=== PATIENT | female | born 1960 | race Caucasian/White ===

== ENCOUNTER → 2023-11-29 12:17 | Outpatient (REF) | payer BC, SELFPAY | LOC: RAD 12:17 | PROVIDERS: ATTENDING PHYSICIAN Student in an Organized Health Care Education/Training Program | DX: J40 Bronchitis, not specified as acute or chronic (principal) | CPT/HCPCS: 71046 ==

== ENCOUNTER → 2024-04-11 15:06 | Outpatient (REF) | payer BC, SELFPAY | LOC: WDC 15:06 | PROVIDERS: ATTENDING PHYSICIAN Student in an Organized Health Care Education/Training Program | DX: Z12.31 Encounter for screening mammogram for malignant neoplasm of breast (principal) | CPT/HCPCS: 77063; 77067 ==

== ENCOUNTER 2025-01-30 09:19 | Emergency (ER) | payer BC, SELFPAY ==
[2025-01-30] VITALS (7 sets, daily range): BP systolic 112–168; BP diastolic 54–80; BMI 32.3
[2025-01-30 10:00] LABS: Hematocrit 37.2 % (37.0-47.0); Hemoglobin 12.6 g/dL (12.0-16.0); Mean Corp Hgb Conc. 33.9 g/dL (33.0-37.0); Mean Corpuscular Hgb 32.3 pg (27.0-31.0); Mean Corpuscular Volume 95.4 fL (81.0-99.0); Mean Platelet Volume 10.3 fL (7.4-10.4); Platelet Count 274 10^3/uL (130-400); Red Cell Dist. Width 14.6 % (11.5-14.5); White Blood Cell Count 6.4 10^3/uL (4.8-10.8)
[2025-01-30] MEDS: ZOFRAN 4 MG IV (10:05)
[2025-01-30 10:20] LABS: Albumin 4.8 g/dl (3.5-5.0); Blood Urea Nitrogen 16 mg/dl (7-17); Carbon Dioxide 28 mmol/L (22-30); Total Bilirubin 0.5 mg/dl (0.2-1.3); Total Protein 7.8 g/dl (6.3-8.2); eGFR > 60.00
[2025-01-30 10:21] LABS: Troponin I < 0.012 ng/ml
[2025-01-30] MEDS: REGLAN 10 MG IV (10:30)
[2025-01-30 10:32] LABS: ALT (SGPT) 24 U/L (0-35); AST (SGOT) 28 U/L (14-36); Alcohol None Detected; Alkaline Phosphatase 86 U/L (38-126); Calcium 10.1 mg/dl (8.4-10.2); Chloride 109 mmol/L (98-107); Glucose 97 mg/dl (70-99); Potassium 5.2 mmol/L (3.5-5.1); Sodium 143 mmol/L (135-145)
[2025-01-30] MEDS: VALIUM INJECTION 5 MG IV (10:32)
[2025-01-30 10:33] LABS: Osmolality Serum 302 mOsm/kg (275-300)
[2025-01-30] MEDS: NSS 1000 IV (10:35)
[2025-01-30] MEDS: TORADOL 15 MG IV (10:46)
--- NOTE | 2025-01-30 14:25 | ED.GENMED ---
History of Present Illness
General
Chief Complaint: Dizziness
Time Seen by Provider: 01/30/25 10:22
History of Present Illness
History of Present Illness:
64-year-old female presents the emergency department for evaluation of abrupt onset of dizziness and headache that began while working today. She is unable to ambulate secondary to symptoms. She does admit to nightly alcohol use, last drink was
last night, estimates between 2 and 5 glasses of wine and beer daily. Denies alcohol intake today. She reports visual abnormality and pressure behind the eyes as well.
Past History
Past History
ED Past Medical History: Other (Chronic back pain)
ED Past Surgical History: and Orthopedic (Nerve block right lower back)
Social History
Tobacco: Non-smoker
Personal:
Living: with family
Employment: Employed (works at grocery store)
Review of Systems
Review of Systems
Allergies reviewed?: Yes
All Other Systems: ROS reviewed and negative except as documented in HPI and ROS
Phy Exam
Physical Exam
Physical Exam:
GEN: Well appearing, NAD, WDWN
HEENT: Oral mucosa moist, no scleral icterus, no nasal congestion
Cardiac: Regular rate
Lung: No respiratory distress, no tachypnea
MSK: No gross deformity or injuries
Skin: Good color, no pallor or jaundice, no rashes
Neuro: AO x3; CN II-XII grossly intact. BUE strength 5/5 in all alfaro, sensation intact and symmetric. BLE strength 5/5 in all alfaro, sensation intact and symmetric. Bilateral nystagmus is seen although this is challenging to assess as the
patient does not cooperate and keep her eyes open, she has ubgano-[id number] ataxia bilaterally, tcsg-rc-rapv is normal, unable to stand
Psych: Calm, cooperative
Course
Orders/Labs/Results
Orders:
Orders
01/30/25 09:38
ECG [Electrocardiogram (*1)] Urgent
Reason for Study: Syncope
01/30/25 09:41
EKG- Treatment ONCE
01/30/25 09:50
Alcohol Urgent
Complete Blood Count/No Diff Urgent
Comprehensive Metabolic Panel Urgent
Serum Osmolality Urgent
Comment: ADD ON
Troponin I Urgent
01/30/25 09:[address] [CT Head W/o Iv Contrast] Urgent
Comment:
Reason For Exam: BRAXTON
01/30/25 09:58
Ondansetron Injectable [Zofran] 4 mg .ROUTE .STK-MED ONE
01/30/25 10:05
Ondansetron Injectable [Zofran] 4 mg IV NOW STA
01/30/25 10:21
Add On- LAB Urgent
Tests Added?: Alcholol level
01/30/25 10:23
Add On- LAB Urgent
Tests Added?: serum osmolality
diazePAM [Valium Injection] 5 mg IV NOW STA
01/30/25 10:24
Metoclopramide [Reglan] 10 mg IV NOW STA
01/30/25 10:35
0.9% Sodium Chloride 1000 ml [Nss] 1,000 ml IV BOLUS
01/30/25 10:43
Ketorolac [Toradol] 15 mg IV NOW STA
01/30/25 14:24
Dexamethasone Sod Phosphate [Decadron] 6 mg IV NOW STA
Abnormal Lab Results
01/30/25
09:50
RBC 3.90 L 10^6/uL
(4.20-5.40)
MCH 32.3 H pg
(27.0-31.0)
RDW 14.6 H %
(11.5-14.5)
Potassium 5.2 H mmol/L
(3.5-5.1)
Chloride 109 H mmol/L
(98-107)
Serum Osmolality 302 H mOsm/kg
(275-300)
01/30/25 09:50
01/30/25 09:50
Vital Signs
Initial and Last Documented VS:
Initial Vital Signs
Temp Pulse Resp BP Pulse Ox
97.5 F 74 16 145/72 100
01/30/25 09:31 01/30/25 09:31 01/30/25 09:31 01/30/25 09:31 01/30/25 09:31
Last Documented Vital Signs
Temp Pulse Resp BP Pulse Ox
97.6 F 102 17 112/54 99
01/30/25 09:36 01/30/25 14:30 01/30/25 14:30 01/30/25 14:00 01/30/25 14:30
MDM/Problems Addressed
MDM/Problems Addressed:
Patient's symptoms resolved after treatment in the ED. Given the abruptness of the symptoms and lack of visual component I suspect this is an acute vestibular neuritis as opposed to BPPV or central vertigo. Will treat with a course of steroids,
she is able to ambulate at time of discharge. Encourage cessation of alcohol
*Critical Care Note
Total Time (30-74mins, 75-104mins- exclusive of procedures): Not Applicable
ED Attending Note
-
Portions of this chart may have been created with voice recognition software.� Occasional wrong word or��sound alike� substitutions may have occurred due to the inherent limitations of voice recognition software.
Discharge Plan
Departure
Patient Disposition: Home (Routine Discharge)
Date of Disposition: 01/30/25
Time of Disposition: 14:25
Patient with high blood pressure during this ER visit?: No
Discharge Problem:
Acute vestibular neuritis
Instructions: Labyrinthitis
Prescriptions:
New
methylprednisolone [Medrol (Gage)] 4 mg tablets,dose pack
See Rx Instructions .ROUTE .COMPLEX Qty: 21 0RF
Rx Instructions:
orally per package directions
meclizine 25 mg tablet
25 mg PO TID PRN (Reason: dizziness) Qty: 20 0RF
No Action
hydrocodone-acetaminophen 5 MG/500 MG tablet
1 tab PO .Q4-6HPRN PRN (Reason: PAIN) Qty: 20 0RF
prednisone 10 MG tablet
10 mg PO .TAPER Qty: 45 0RF
Rx Instructions:
Take 50mg daily x3days, 40mg daily x3days,
30mg daily x3days, 20mg daily x3days,
10mg daily x3days
Referrals:
Segundo Dan, DO [Family Provider] -
Interventions
Interventions:
*Risk Screen - Suicide Last Done: 01/30/25 09:31
*General Assessment Last Done: 01/30/25 10:36
*Neglect/Abuse Screening Last Done: 01/30/25 10:40
*ED- Fall Risk Assessment Last Done: 01/30/25 10:36
*ED COVID-19 Vaccine History Last Done: 01/30/25 10:36
*Nursing Disposition Last Done: 01/30/25 14:35
ED- Neurological Assessment Last Done: 01/30/25 10:36
ED- Cardiac Assessment Last Done: 01/30/25 10:36
ED Swallowing Screen Last Done: 01/30/25 11:30
Discharge Date and Time
Discharge Date/Time: 01/30/25 14:35
Print Language: [place]AST [place]
[2025-01-30] MEDS: DECADRON 6 MG IV (14:34)
--- NOTE | 2025-01-30 15:54 | EDRN ---
Patient given discharge instructions by POLLY Acosta.
== END 2025-01-30 14:35 | disposition home or self-care (01) ==
LOC: EMR 09:19
PROVIDERS: Emergency Medicine; EMERGENCY PHYSICIAN Student in an Organized Health Care Education/Training Program; FAMILY PHYSICIAN Family Medicine
DX: H93.3X9 Disorders of unspecified acoustic nerve (principal)
CPT/HCPCS: 99285; 96374; 96375 ×4; 96361; 70450; 80053; 82077; 83930; 84484; 85027; 93005

== ENCOUNTER → 2025-02-14 12:36 | Outpatient (REF) | payer BC, SELFPAY | LOC: RAD 12:36 | PROVIDERS: ATTENDING PHYSICIAN Family Medicine | DX: R63.4 Abnormal weight loss (principal); R61 Generalized hyperhidrosis | CPT/HCPCS: 71270; 74178; Q9967 ==

== ENCOUNTER 2025-05-01 06:20 | Day surgery (SDC) | payer BC, SELFPAY | END 2025-05-01 15:22 | disposition home or self-care (01) | LOC: GI 06:20 | PROVIDERS: ATTENDING PHYSICIAN Student in an Organized Health Care Education/Training Program | DX: K62.5 Hemorrhage of anus and rectum (principal); R63.4 Abnormal weight loss; K64.8 Other hemorrhoids; K64.4 Residual hemorrhoidal skin tags; K31.89 Other diseases of stomach and duodenum; D12.0 Benign neoplasm of cecum; D12.2 Benign neoplasm of ascending colon; D12.5 Benign neoplasm of sigmoid colon; K63.5 Polyp of colon | CPT/HCPCS: 45385; 45380; 43239; 88305; 88342 ==

== ENCOUNTER 2025-05-01 19:30 | Emergency (ER) | payer BC, SELFPAY ==
[2025-05-01 19:32] VITALS: BP 137/81
[2025-05-01 20:14] VITALS: BMI 31.2
[2025-05-01 20:17] VITALS: BP 118/68
[2025-05-01 21:00] VITALS: BP 120/68
--- NOTE | 2025-05-01 22:34 | ED.GENMED ---
History of Present Illness
General
Chief Complaint: Bowel Problem
Source: patient
Exam Limitations: none
Time Seen by Provider: 05/01/25 21:18
Nursing documentation reviewed up to this point in time: agreed with
History of Present Illness
History of Present Illness:
The patient is a 64-year-old female with a past medical history of high blood pressure and hyperlipidemia who just underwent a colonoscopy and endoscopy with Dr. Ervin earlier today. Patient reports that during the prep, her bowel movements had
been clear, however, after returning home after the procedure today, she passed 4 bowel movements that contained pieces of brownish, green and black-colored material. Additionally, patient reports that after coming home from the procedure she
vomited twice. The vomit was described as yellow without any sign of green or blood. Patient denies any red blood in the stool. Patient denies abdominal pain at this time. She denies nausea. Patient denies lightheadedness and dizziness.
Patient expresses that she feels tired and wants to go home soon as possible.
Past History
Past History
ED Past Medical History: HTN, Hypercholesterolemia and Other (Chronic back pain)
ED Past Surgical History: and Orthopedic (Nerve block right lower back)
Social History
Tobacco: Non-smoker
Alcohol: Other
Drug: None
Personal:
Living: with family
Employment: Employed (works at grocery store)
Family History
Family History: Other
Review of Systems
Review of Systems
Allergies reviewed?: Yes
All Other Systems: ROS reviewed and negative except as documented in HPI and ROS
Constitutional: Reports no symptoms
EENT: Reports no symptoms
Respiratory: Reports no symptoms
Cardiac: Reports no symptoms
ABD/GI: Reports abdominal pain, nausea, vomiting and diarrhea
: Reports no symptoms
Musculoskeletal: Reports no symptoms
Skin: Reports no symptoms
Neurological: Reports no symptoms
Endocrine: Reports no symptoms
Hematologic/Lymphatic: Reports no symptoms
Psychiatric: Reports no symptoms
Phy Exam
Physical Exam
Physical Exam:
Physical Exam
General: no apparent distress, not acutely ill, well and comfortable
Neck: supple.
Heart: s1/s2 regular rate and rhythm, no murmur. equal radial pulses.
Lungs: no acute respiratory distress.
Abdomen: normal bowel sounds. not tender. no CVAT, soft, nondistended, nontender throughout
Neuro: alert and oriented. no focal neurological deficits
Skin: no rash
Psychiatric: well kept. interactive and cooperative
Extremities: no edema.
Course
Vital Signs
Initial and Last Documented VS:
Initial Vital Signs
Temp Pulse Resp BP Pulse Ox
98.1 F 73 18 137/81 98
05/01/25 19:32 05/01/25 19:32 05/01/25 19:32 05/01/25 19:32 05/01/25 19:32
Last Documented Vital Signs
Temp Pulse Resp BP Pulse Ox
98.7 F 71 18 120/68 98
05/01/25 20:19 05/01/25 20:19 05/01/25 20:19 05/01/25 21:00 05/01/25 22:35
MDM/Problems Addressed
Differential Diagnosis Includes:
Lower GI bleed, upper GI bleed
MDM/Problems Addressed:
Patient presents with concerns with acute blood in stool after colonoscopy and endoscopy
Acute Exacerbation and/or Progression of Chronic Illness:
Patient was acutely hypertensive, however, on rechecking blood pressure, it has come down nicely
Acute Exacerbation and/or Progression of Chronic Illness: HTN
*Pulse Oximetry
SaO2: 98
Oxygen Mode of Delivery: Room air
Patient hypoxic: no
*EKG
Interpreted by ED Provider?: NA
*Leasing Director Interpretation
Rate: Leasing Director- N/A
*Critical Care Note
Total Time (30-74mins, 75-104mins- exclusive of procedures): Not Applicable
Data Reviewed
Review of Other/Old Records Reveals: Testing (Colonoscopy report reviewed from Dr. Ervin from 05/01/2025 which showed multiple polyp removals)
Source: patient and family
Patient Management
Social determinants of health affecting care: Living situation and Strong social support
Discussion with other providers: Other (Discussed case with Dr. Good who reports that a small amount of bleeding can be normal after endoscopy and colonoscopy. Dr. Good recommended CBC and assured me that patient could call the office tomorrow to talk
to Dr. Ervin)
Escalation/DeEscalation of care consider admission/obs:
Patient remains very well and comfortable appearing. She denies any abdominal pain. Patient adamantly wants to go home and states she is just extremely tired. I told the patient that GI recommended a CBC, however, patient reports she feels well
and does not want to have blood work done. Due to patient appearing hemodynamically well and stable, I feel this is reasonable. Patient told to return with any further concerns for bleeding or abdominal pain and to call Dr. Ervin's office tomorrow
ED Attending Note
-
Portions of this chart may have been created with voice recognition software.� Occasional wrong word or��sound alike� substitutions may have occurred due to the inherent limitations of voice recognition software.
Discharge Plan
Departure
Patient Disposition: Home (Routine Discharge)
Date of Disposition: 05/01/25
Time of Disposition: 22:31
Patient with high blood pressure during this ER visit?: No
Condition: Good
Covid-19: Not Applicable
Discharge Problem:
Colonoscopy causing post-procedural bleeding
Instructions: Colonoscopy - Discharge instructions
Prescriptions:
No Action
hydrocodone-acetaminophen 5 MG/500 MG tablet
1 tab PO .Q4-6HPRN PRN (Reason: PAIN) Qty: 20 0RF
prednisone 10 MG tablet
10 mg PO .TAPER Qty: 45 0RF
Rx Instructions:
Take 50mg daily x3days, 40mg daily x3days,
30mg daily x3days, 20mg daily x3days,
10mg daily x3days
methylprednisolone [Medrol (Gage)] 4 mg tablets,dose pack
See Rx Instructions .ROUTE .COMPLEX Qty: 21 0RF
Rx Instructions:
orally per package directions
meclizine 25 mg tablet
25 mg PO TID PRN (Reason: dizziness) Qty: 20 0RF
Referrals:
Segundo Dan, DO [Family Provider, Family Practice]
Adal Ervin DO [Active, Gastroenterology]
Referral Note: Call the office in the morning
Activity Restrictions/Additional Instructions:
Return for abdominal pain or bleeding. Please call Dr. Ervin's office in the morning.
Interventions
Interventions:
*Risk Screen - Suicide Last Done: 05/01/25 19:32
*General Assessment Last Done: 05/01/25 19:32
*Neglect/Abuse Screening Last Done: 05/01/25 19:32
*ED- Fall Risk Assessment Last Done: 05/01/25 20:15
*ED COVID-19 Vaccine History Last Done: 05/01/25 19:38
*Nursing Disposition Last Done: 05/01/25 22:37
XY-Vrpnyx-Sveteztdkg Assessment Last Done: 05/01/25 20:15
Discharge Date and Time
Discharge Date/Time: 05/01/25 22:39
Print Language: CYMRAES
== END 2025-05-01 22:39 | disposition home or self-care (01) ==
LOC: EMR 19:30
PROVIDERS: EMERGENCY PHYSICIAN Emergency Medicine; FAMILY PHYSICIAN Family Medicine
DX: K91.840 Postprocedural hemorrhage of a digestive system organ or structure following a digestive system procedure (principal); I10 Essential (primary) hypertension; E78.00 Pure hypercholesterolemia, unspecified; M54.9 Dorsalgia, unspecified; G89.29 Other chronic pain
CPT/HCPCS: 99281

== ENCOUNTER 2025-05-07 12:20 | Emergency (ER) | payer BC, SELFPAY ==
[2025-05-07 12:29] VITALS: BP 138/77
[2025-05-07 12:58] LABS: Hematocrit 33.3 % (37.0-47.0); Hemoglobin 11.3 g/dL (12.0-16.0); Mean Corp Hgb Conc. 33.9 g/dL (33.0-37.0); Mean Corpuscular Volume 96.2 fL (81.0-99.0); Nucleated Red Blood Cells % 0 %; Platelet Count 243 10^3/uL (130-400); Red Cell Dist. Width 13.9 % (11.5-14.5)
[2025-05-07 13:11] LABS: ALT (SGPT) 21 U/L (0-35); APTT 34.3 Sec (23.4-35.0); AST (SGOT) 26 U/L (14-36); Albumin 4.4 g/dl (3.5-5.0); Alkaline Phosphatase 77 U/L (38-126); Blood Urea Nitrogen 24 mg/dl (7-17); Calcium 9.4 mg/dl (8.4-10.2); Carbon Dioxide 29 mmol/L (22-30); Chloride 106 mmol/L (98-107); Glucose 89 mg/dl (70-99); Potassium 4.5 mmol/L (3.5-5.1); Sodium 140 mmol/L (135-145); Total Protein 6.7 g/dl (6.3-8.2); eGFR > 60.00
[2025-05-07 13:22] LABS: Troponin I < 0.012 ng/ml
== END 2025-05-07 14:40 | disposition left against medical advice (07) ==
LOC: EMR 12:20
PROVIDERS: EMERGENCY PHYSICIAN Emergency Medicine
DX: R07.9 Chest pain, unspecified (principal); Z53.21 Procedure and treatment not carried out due to patient leaving prior to being seen by health care provider
CPT/HCPCS: 80053; 84484; 85025; 85730; 93005

== ENCOUNTER → 2025-08-02 14:18 | Outpatient (REF) | payer BC, SELFPAY | LOC: PAVMRI 14:18 | PROVIDERS: ATTENDING PHYSICIAN Specialist; FAMILY PHYSICIAN Family Medicine | DX: G31.84 Mild cognitive impairment of uncertain or unknown etiology (principal) | CPT/HCPCS: 70551 ==

== ENCOUNTER → 2025-08-03 12:23 | Outpatient (REF) | payer BC, SELFPAY | LOC: MRI 3T 12:23 | PROVIDERS: ATTENDING PHYSICIAN Physician Assistant Medical; FAMILY PHYSICIAN Family Medicine | DX: M87.051 Idiopathic aseptic necrosis of right femur (principal) | CPT/HCPCS: 73721 ==

== ENCOUNTER → 2025-08-21 14:15 | Outpatient (REF) | payer BC, SELFPAY | LOC: RAD 14:15 | PROVIDERS: ATTENDING PHYSICIAN Student in an Organized Health Care Education/Training Program; FAMILY PHYSICIAN Family Medicine | DX: K76.0 Fatty (change of) liver, not elsewhere classified (principal) | CPT/HCPCS: 76700 ==